=== PATIENT | female | born 1995 | race African-American/Black ===

== ENCOUNTER 2016-06-05 12:34 | Emergency (ER) | payer SELFPAY ==
[~2016-06-05] VITALS: Ht 154.9 cm; Wt 55.0 kg
[2016-06-05 12:36] VITALS: BP 126/84; PULSE 84; RESP 20; TEMP 98.5; O2SAT 100
--- NOTE | 2016-06-05 13:12 | PD ---
Physical Exam Time Seen by Provider: 13:11 Narrative 20 yo F with vaginal bleeding since January. Reports abd cramping. Denies fever, vomiting. VSS Seen in triage, awaiting bed placement. Data Data Last Documented VS Vital Signs Date Time Temp Pulse Resp B/P Pulse Ox O2 Delivery O2 Flow Rate FiO2 06/05/16 12:36 98.5 84 20 126/84 100 Room Air MDM Supervised Visit with SIM: No Scripts No Active Prescriptions or Reported Meds Jess Ahuja Jun 05, 2016 13:12
[2016-06-05] MEDS ORDERED: SODIUM CHLOR 0.9% 1000 ML INJ 1,000 ML IV ONE (13:46)
[2016-06-05] MEDS ORDERED: SODIUM CHLORIDE 0.9% FLUSH 10 ML FLUSH IVF PRN (14:00)
[2016-06-05 14:13] LABS: BLOOD, URINE MOD (NEG); COMMENT (UR) CULT NOT INDICATED; CULTURE IF INDICATED CULT NOT INDICATED; GLUCOSE,URINE NEG (NEG); KETONE, URINE NEG (NEG); MUCUS URINE FEW /lpf (OCC); NITRITE,URINE NEG (NEG); SQUAMOUS EPITHELIAL CELL URINE <1 /hpf (0-5); URINE COLOR YELLOW (YELLW/STRAW)
[2016-06-05 14:15] LABS: AUTOMATED NEUTROPHIL # 1.4 TH/MM3 (1.8-7.7); BASOPHIL % 0.6 % (0.0-2.0); EOSINOPHIL # 0.2 TH/MM3 (0-0.4); EOSINOPHIL % 4.4 % (0.0-4.0); HEMATOCRIT 41.1 % (35.0-46.0); LYMPH % 52.9 % (9.0-44.0); LYMPHOCYTE # 2.3 TH/MM3 (1.0-4.8); MEAN CELL VOLUME 91.3 FL (80.0-100.0); MEAN CORPUSCULAR HEMOGLOBIN 30.9 PG (27.0-34.0); MEAN CORPUSCULAR HGB CONC 33.9 % (32.0-36.0); MONO % 9.8 % (0.0-8.0); NEUT % 32.3 % (16.0-70.0); PLATELET COUNT 199 TH/MM3 (150-450); RED CELL DISTRIBUTION WIDTH 13.5 % (11.6-17.2); WHITE BLOOD COUNT 4.4 TH/MM3 (4.0-11.0)
[2016-06-05 14:19] LABS: HEMO FLAGS AUTO DIFF
[2016-06-05 14:36] LABS: ALT (GPT) 17 U/L (10-53); ANION GAP 7 MEQ/L (5-15); AST (GOT) 10 U/L (15-37); BLOOD UREA NITROGEN 9 MG/DL (7-18); CHLORIDE 109 MEQ/L (98-107); GLOMERULAR FILTRATION RATE 115 ML/MIN (>89); POTASSIUM 4.3 MEQ/L (3.5-5.1); SODIUM (NA) 139 MEQ/L (136-145)
[2016-06-05 14:39] LABS: ALKALINE PHOSPHATASE 46 U/L (45-117); TOTAL BILIRUBIN ADULT 0.5 MG/DL (0.2-1.0)
--- NOTE | 2016-06-05 14:46 | PD ---
HPI Chief Complaint: Customer Experience Leader Problem/Complaint Time Seen by Provider: 13:30 Travel History International Travel<30 days: No Contact w/Intl Traveler<30days: No Traveled to known affect area: No History of Present Illness HPI Patient is a 20-year-old female presenting to the emergency department for evaluation of continuous vaginal bleeding since January. She states she stopped Depo-Provera in December, in January she was started on oral contraceptive pills and since that time she said moderately heavy bleeding using 4-5 tampons and pads daily. Patient states that she went back to the health Department and they changed her pills to Ortho Tri-Cyclen however that has not alleviated the bleeding. She states that she feels depressed because of the bleeding at times feels weak. She has been taking [id number] iron supplements and probiotics. She also reports vaginal odor, she states that the health department and gave her metronidazole 3 weeks ago but the odor persists. Patient has been taking ibuprofen 800 mg due to the cramping. PFS Past Medical History Medical History: Denies Significant Hx Diminished Hearing: No Immunizations Current: Yes ?: Unknown : 3 Para: 3 Miscarriage: 2 : 1 Dilation and Curettage (D&C): Yes Past Surgical History Abdominal Surgery: Yes (POLYP REMOVAL WITH EGD) Social History Alcohol Use: Yes (occ) Tobacco Use: No Substance Use: Yes (marijuana) Allergies-Medications (Allergen,Severity, Reaction): Coded Allergies: No Known Allergies (Unverified , 06/05/16) Reported Meds & Prescriptions Reported Meds & Active Scripts Active No Active Prescriptions or Reported Medications Review of Systems Except as stated in HPI: all other systems reviewed are Neg Genitourinary: Positive: Discharge, Menorrhagia, Vaginal Bleeding Physical Exam Narrative GENERAL: Well-nourished, well-developed patient. SKIN: Focused skin assessment warm/dry. HEAD: Normocephalic. EYES: No scleral icterus. No injection or drainage. NECK: Supple, trachea midline. No JVD or lymphadenopathy. CARDIOVASCULAR: Regular rate and rhythm without murmurs, gallops, or rubs. RESPIRATORY: Breath sounds equal bilaterally. No accessory muscle use. GASTROINTESTINAL: Abdomen soft, non-tender, nondistended. MUSCULOSKELETAL: No cyanosis, or edema. BACK: Nontender without obvious deformity. No CVA tenderness. GENITOURINARY: No dysuria, no frequency, vaginal discharge. Moderate amount of blood in vaginal vault. Data Data Last Documented VS Vital Signs Date Time Temp Pulse Resp B/P Pulse Ox O2 Delivery O2 Flow Rate FiO2 06/05/16 12:36 98.5 84 20 126/84 100 Room Air Orders Complete Blood Count With Diff (06/05/16 13:46) Comprehensive Metabolic Panel (06/05/16 13:46) Gc And Chlamydia Pcr (06/05/16 13:46) Wet Prep Profile (06/05/16 13:46) Urinalysis - C+S If Indicated (06/05/16 13:46) Iv Access Insert/Monitor (06/05/16 13:46) Sodium Chloride 0.9% Flush (Ns Flush) (06/05/16 14:00) Sodium Chlor 0.9% 1000 Ml Inj (Ns 1000 M (06/05/16 13:46) Thyroid Stimulating Hormone (06/05/16 14:32) Labs Laboratory Tests Test 06/05/16 13:30 White Blood Count 4.4 TH/MM3 Red Blood Count 4.50 MIL/MM3 Hemoglobin 13.9 GM/DL Hematocrit 41.1 % Mean Corpuscular Volume 91.3 FL Mean Corpuscular Hemoglobin 30.9 PG Mean Corpuscular Hemoglobin 33.9 % Concent Red Cell Distribution Width 13.5 % Platelet Count 199 TH/MM3 Mean Platelet Volume 11.1 FL Neutrophils (%) (Auto) 32.3 % Lymphocytes (%) (Auto) 52.9 % Monocytes (%) (Auto) 9.8 % Eosinophils (%) (Auto) 4.4 % Basophils (%) (Auto) 0.6 % Neutrophils # (Auto) 1.4 TH/MM3 Lymphocytes # (Auto) 2.3 TH/MM3 Monocytes # (Auto) 0.4 TH/MM3 Eosinophils # (Auto) 0.2 TH/MM3 Basophils # (Auto) 0.0 TH/MM3 CBC Comment AUTO DIFF Differential Total Cells 100 Counted Neutrophils % (Manual) 24 % Band Neutrophils % 1 % Lymphocytes % 59 % Monocytes % 14 % Eosinophils % 1 % Basophils % 1 % Neutrophils # (Manual) 1.1 TH/MM3 Differential Comment FINAL DIFF MANUAL Platelet Estimate NORMAL Platelet Morphology Comment ENLARGED Red Cell Morphology Comment NORMAL Urine Color YELLOW Urine Turbidity CLEAR Urine pH 7.0 Urine Specific [place] 1.025 Urine Protein TRACE mg/dL Urine Glucose (UA) NEG mg/dL Urine Ketones NEG mg/dL Urine Occult Blood MOD Urine Nitrite NEG Urine Bilirubin NEG Urine Urobilinogen LESS THAN 2.0 MG/DL Urine Leukocyte Esterase NEG Urine RBC /hpf Urine WBC 2 /hpf Urine Squamous Epithelial <1 /hpf Cells Urine Mucus FEW /lpf Microscopic Urinalysis Comment CULT NOT INDICATED Sodium Level 139 MEQ/L Potassium Level 4.3 MEQ/L Chloride Level 109 MEQ/L Carbon Dioxide Level 23.0 MEQ/L Anion Gap 7 MEQ/L Blood Urea Nitrogen 9 MG/DL Creatinine 0.76 MG/DL Estimat Glomerular Filtration 115 ML/MIN Rate Random Glucose 80 MG/DL Calcium Level 8.6 MG/DL Total Bilirubin 0.5 MG/DL Aspartate Amino Transf 10 U/L (AST/SGOT) Alanine Aminotransferase 17 U/L (ALT/SGPT) Alkaline Phosphatase 46 U/L Total Protein 7.3 GM/DL Albumin 3.6 GM/DL Thyroid Stimulating Hormone 0.655 uIU/ML 3rd Gen [facility] Medical Decision Making Medical Screen Exam Complete: Yes Emergency Medical Condition: Yes Interpretation(s) Vital Signs Date Time Temp Pulse Resp B/P Pulse Ox O2 Delivery O2 Flow Rate FiO2 06/05/16 12:36 98.5 84 20 126/84 100 Room Air Differential Diagnosis Menorrhagia versus fibroids versus thyroid disorder versus coagulopathy versus other Narrative Course Patient is a 20-year-old female presenting to emergency evaluation of 2 months of menstrual bleeding. Patient's vital signs are stable, CBC is unremarkable, chemistries unremarkable, TSH is within normal limits. Urinalysis shows occult blood which would be consistent with patient's vaginal bleeding. Wet prep is negative area patient will be given Microgestin 1.07/22/30, dose will taper, patient was given written instructions. He is advised to follow-up with a jumbo operator. She is encouraged to return to emergency department for any new or worsening symptoms. Patient verbalized understanding of these instructions. Patient is stable for discharge. Diagnosis Primary Impression: Menorrhagia Qualified Code: N92.1 - Menorrhagia with irregular cycle Referrals: Maintenance Shop Welder 1 week Patient Instructions: General Instructions, Menorrhagia (ED) Med/Other Pt SpecificInfo: Prescription(s) given Scripts Norethindrone-Ethinyl Estradiol (Microgestin 1.07/22)1.5-30 Mg-Mcg Tab1 Tab PO DAILY #1 PACK Ref 0 Prov:Brisa Meneses 06/05/16 Norethindrone-Ethinyl Estradiol (Microgestin 1.5)1.5-30 Mg-Mcg Tab1 Tab PO DAILY #1 PACK Ref 0 1 TAB PO TID FOR 3 DAYS, THEN 1 TAB PO BID FOR 5 DAYS, THEN 1 TAB PO DAILY UNTIL PACK IS COMPLETED Prov:Brisa Meneses 06/05/16 Disposition: 01 DISCHARGE HOME Condition: Stable Brisa Meneses Jun 05, 2016 14:46
[2016-06-05 14:53] LABS: BANDS 1 % (0-6); BASOPHILS 1 % (0-2); EOSINOPHILS 1 % (0-4); NEUTROPHIL # MANUAL DIFF 1.1 TH/MM3 (1.8-7.7); POLYS (SEG NEUTROPHILS) 24 % (16-70); WBC DIFF SAMPLE 100
[2016-06-05 14:54] LABS: PLATELET ESTIMATE SMEAR NORMAL (NORMAL); PLATELET MORPHOLOGY ENLARGED (NORMAL); SCAN/DIFF FINAL DIFF MANUAL
--- NOTE | 2016-06-05 16:05 | PD ---
Data Data Last Documented VS Vital Signs Date Time Temp Pulse Resp B/P Pulse Ox O2 Delivery O2 Flow Rate FiO2 06/05/16 12:36 98.5 84 20 126/84 100 Room Air Orders Complete Blood Count With Diff (06/05/16 13:46) Comprehensive Metabolic Panel (06/05/16 13:46) Gc And Chlamydia Pcr (06/05/16 13:46) Wet Prep Profile (06/05/16 13:46) Urinalysis - C+S If Indicated (06/05/16 13:46) Iv Access Insert/Monitor (06/05/16 13:46) Sodium Chloride 0.9% Flush (Ns Flush) (06/05/16 14:00) Sodium Chlor 0.9% 1000 Ml Inj (Ns 1000 M (06/05/16 13:46) Thyroid Stimulating Hormone (06/05/16 14:32) Labs Laboratory Tests Test 06/05/16 13:30 White Blood Count 4.4 TH/MM3 Red Blood Count 4.50 MIL/MM3 Hemoglobin 13.9 GM/DL Hematocrit 41.1 % Mean Corpuscular Volume 91.3 FL Mean Corpuscular Hemoglobin 30.9 PG Mean Corpuscular Hemoglobin 33.9 % Concent Red Cell Distribution Width 13.5 % Platelet Count 199 TH/MM3 Mean Platelet Volume 11.1 FL Neutrophils (%) (Auto) 32.3 % Lymphocytes (%) (Auto) 52.9 % Monocytes (%) (Auto) 9.8 % Eosinophils (%) (Auto) 4.4 % Basophils (%) (Auto) 0.6 % Neutrophils # (Auto) 1.4 TH/MM3 Lymphocytes # (Auto) 2.3 TH/MM3 Monocytes # (Auto) 0.4 TH/MM3 Eosinophils # (Auto) 0.2 TH/MM3 Basophils # (Auto) 0.0 TH/MM3 CBC Comment AUTO DIFF Differential Total Cells 100 Counted Neutrophils % (Manual) 24 % Band Neutrophils % 1 % Lymphocytes % 59 % Monocytes % 14 % Eosinophils % 1 % Basophils % 1 % Neutrophils # (Manual) 1.1 TH/MM3 Differential Comment FINAL DIFF MANUAL Platelet Estimate NORMAL Platelet Morphology Comment ENLARGED Red Cell Morphology Comment NORMAL Urine Color YELLOW Urine Turbidity CLEAR Urine pH 7.0 Urine Specific [place] 1.025 Urine Protein TRACE mg/dL Urine Glucose (UA) NEG mg/dL Urine Ketones NEG mg/dL Urine Occult Blood MOD Urine Nitrite NEG Urine Bilirubin NEG Urine Urobilinogen LESS THAN 2.0 MG/DL Urine Leukocyte Esterase NEG Urine RBC /hpf Urine WBC 2 /hpf Urine Squamous Epithelial <1 /hpf Cells Urine Mucus FEW /lpf Microscopic Urinalysis Comment CULT NOT INDICATED Sodium Level 139 MEQ/L Potassium Level 4.3 MEQ/L Chloride Level 109 MEQ/L Carbon Dioxide Level 23.0 MEQ/L Anion Gap 7 MEQ/L Blood Urea Nitrogen 9 MG/DL Creatinine 0.76 MG/DL Estimat Glomerular Filtration 115 ML/MIN Rate Random Glucose 80 MG/DL Calcium Level 8.6 MG/DL Total Bilirubin 0.5 MG/DL Aspartate Amino Transf 10 U/L (AST/SGOT) Alanine Aminotransferase 17 U/L (ALT/SGPT) Alkaline Phosphatase 46 U/L Total Protein 7.3 GM/DL Albumin 3.6 GM/DL Thyroid Stimulating Hormone 0.655 uIU/ML 3rd Gen MDM Supervised Visit with SIM: Yes Narrative Course The history, exam, and medical decision-making in the associated mid-level provider note were completed with my assistance. I reviewed and agree with the findings presented. I attest that I had a [id number] encounter with the patient on the same day, and personally performed and documented my assessment and findings in the medical record. *My assessment and Findings: 20 year-old woman with dysmenorrhea and vaginal bleeding ongoing for several months. She recently stopped her Depo-Provera. She's been on several rounds of control pills which haven't really seemed to help. She started bleeding, 2-3 tampons a day. Started very frustrating to her. Labs look okay. Thyroid tests look okay. Recommend gynecology follow-up. Could consider OCP taper. Scripts No Active Prescriptions or Reported Meds John Martinez MD Jun 05, 2016 16:05
[2016-06-05] MEDS ORDERED: NORE-44 PO (16:09)
[2016-06-05 18:22] LABS: CHLAMYDIA PCR NOT DETECTED (NOT DETECT); NEISSERIA PCR NOT DETECTED (NOT DETECT)
== END 2016-06-05 16:31 | disposition home or self-care (01) ==
LOC: NEPD 12:34
DX: N92.1 Excessive and frequent menstruation with irregular cycle (principal); N94.6 Dysmenorrhea, unspecified
CPT/HCPCS: 80053; 81001; 84443; 85007; 85027; 87210; 87491; 87591; 96360; 96361; 99284; J7030

== ENCOUNTER 2016-06-09 14:26 | Emergency (ER) | payer SELFPAY ==
[~2016-06-09] VITALS: Ht 154.9 cm; Wt 55.5 kg
[~2016-06-09 14:26] MED LIST: NORE-44 PO
[2016-06-09 14:28] VITALS: BP 122/61; PULSE 100; RESP 24; O2SAT 100
[2016-06-09] MEDS ORDERED: IRON18TA2 PO (14:57)
[2016-06-09 15:01] VITALS: TEMP 99
[2016-06-09] MEDS ORDERED: SODIUM CHLOR 0.9% 1000 ML INJ 1,000 ML IV SCH (15:13)
[2016-06-09] MEDS ORDERED: KETOROLAC TROMETHAMINE 30 MG/ML (IVP) VIAL IVP ONE (15:15)
[2016-06-09] MEDS ORDERED: SODIUM CHLORIDE 0.9% FLUSH 10 ML FLUSH IV FLUSH PRN (15:15)
[2016-06-09] MEDS ORDERED: ONDANSETRON HCL 4 MG/2 ML VIAL IVP ONE (15:15)
--- NOTE | 2016-06-09 15:43 | PD ---
HPI Chief Complaint: Abdominal Pain Time Seen by Provider: 14:58 Travel History International Travel<30 days: No Contact w/Intl Traveler<30days: No Traveled to known affect area: No History of Present Illness HPI 20-year-old female here with complaint of abdominal pain, nausea vomiting diarrhea. Patient states that she woke up this morning with diffuse crampy abdominal discomfort and associated nausea vomiting diarrhea. 10 episodes of emesis today, 4 episodes of diarrhea. No hematemesis or hematochezia. Patient notes mild diffuse crampy abdominal discomfort. No fevers or chills. No urinary symptoms. She does not recall eating any new foods. PFSH Past Medical History Diminished Hearing: No Immunizations Current: Yes ?: Not LMP: irreg-just received bc on the from : 3 Para: 3 Miscarriage: 2 : 1 Dilation and Curettage (D&C): Yes Past Surgical History Abdominal Surgery: Yes (POLYP REMOVAL WITH EGD) Social History Alcohol Use: Yes (occ) Tobacco Use: No Substance Use: Yes (marijuana) Allergies-Medications (Allergen,Severity, Reaction): Coded Allergies: No Known Allergies (Unverified , 06/09/16) Reported Meds & Prescriptions Reported Meds & Active Scripts Active Microgestin 1.5/30 (Norethindrone-Ethinyl Estradiol) 1.5-30 Mg-Mcg Tab 1 Tab PO DAILY Microgestin 1.5/30 (Norethindrone-Ethinyl Estradiol) 1.5-30 Mg-Mcg Tab 1 Tab PO DAILY 1 TAB PO TID FOR 3 DAYS, THEN 1 TAB PO BID FOR 5 DAYS, THEN 1 TAB PO DAILY UNTIL PACK IS COMPLETED Reported Iron (Ferrous Fumarate) 18 Mg Tab Unknown Dose PO DAILY Review of Systems Except as stated in HPI: all other systems reviewed are Neg Physical Exam Narrative GENERAL: Well-appearing female in no acute distress SKIN: Focused skin assessment warm/dry. HEAD: Normocephalic. EYES: No scleral icterus. No injection or drainage. ENT: Mucous membranes pink and moist. NECK: Supple CARDIOVASCULAR: Regular rate and rhythm. No murmur appreciated. RESPIRATORY: No accessory muscle use. Clear to auscultation. Breath sounds equal bilaterally. GASTROINTESTINAL: Abdomen soft, non-tender, nondistended. MUSCULOSKELETAL: No obvious deformities. No edema. NEUROLOGICAL: Awake and alert. Motor grossly within normal limits. Normal speech. PSYCHIATRIC: Appropriate mood and affect; insight and judgment normal. Data Data Last Documented VS Vital Signs Date Time Temp Pulse Resp B/P Pulse Ox O2 Delivery O2 Flow Rate FiO2 06/09/16 15:01 99.0 06/09/16 14:28 100 24 122/61 100 Room Air Orders Complete Blood Count With Diff (06/09/16 15:13) Comprehensive Metabolic Panel (06/09/16 15:13) Lipase (06/09/16 15:13) Iv Access Insert/Monitor (06/09/16 15:13) Oximetry (06/09/16 15:13) Ondansetron Inj (Zofran Inj) (06/09/16 15:15) Sodium Chlor 0.9% 1000 Ml Inj (Ns 1000 M (06/09/16 15:13) Sodium Chloride 0.9% Flush (Ns Flush) (06/09/16 15:15) Ketorolac Inj (Toradol Inj) (06/09/16 15:15) Diphenhydramine Inj (Benadryl Inj) (06/09/16 16:00) Metoclopramide Inj (Reglan Inj) (06/09/16 16:00) Labs Laboratory Tests Test 06/09/16 15:35 White Blood Count 7.5 TH/MM3 Red Blood Count 4.74 MIL/MM3 Hemoglobin 14.5 GM/DL Hematocrit 42.4 % Mean Corpuscular Volume 89.6 FL Mean Corpuscular Hemoglobin 30.7 PG Mean Corpuscular Hemoglobin 34.3 % Concent Red Cell Distribution Width 13.4 % Platelet Count 220 TH/MM3 Mean Platelet Volume 10.5 FL Neutrophils (%) (Auto) 87.4 % Lymphocytes (%) (Auto) 10.0 % Monocytes (%) (Auto) 2.2 % Eosinophils (%) (Auto) 0.0 % Basophils (%) (Auto) 0.4 % Neutrophils # (Auto) 6.6 TH/MM3 Lymphocytes # (Auto) 0.8 TH/MM3 Monocytes # (Auto) 0.2 TH/MM3 Eosinophils # (Auto) 0.0 TH/MM3 Basophils # (Auto) 0.0 TH/MM3 CBC Comment DIFF FINAL Differential Comment Sodium Level 137 MEQ/L Potassium Level 3.5 MEQ/L Chloride Level 106 MEQ/L Carbon Dioxide Level 18.9 MEQ/L Anion Gap 12 MEQ/L Blood Urea Nitrogen 11 MG/DL Creatinine 1.17 MG/DL Estimat Glomerular Filtration 70 ML/MIN Rate Random Glucose 105 MG/DL Calcium Level 9.3 MG/DL Total Bilirubin 1.0 MG/DL Aspartate Amino Transf 15 U/L (AST/SGOT) Alanine Aminotransferase 20 U/L (ALT/SGPT) Alkaline Phosphatase 49 U/L Total Protein 8.3 GM/DL Albumin 4.1 GM/DL Lipase 108 U/L [facility] Medical Decision Making Medical Screen Exam Complete: Yes Emergency Medical Condition: Yes Medical Record Reviewed: Yes Differential Diagnosis 20-year-old female here with nausea vomiting diarrhea and diffuse crampy abdominal pain since eating this morning. Symptoms seem consistent with gastroenteritis or foodborne illness, differential includes dehydration, electrolyte abnormality, pancreatitis or hepatobiliary pathology. Narrative Course Patient placed on monitor, IV established and blood obtained. CBC, CMP, lipase obtained and unremarkable. Patient given Toradol, Zofran, 1 L normal saline bolus without improvement of her symptoms. Given Benadryl, Reglan, Zofran and able to tolerate oral challenge and will be discharged home. Diagnosis Primary Impression: Gastroenteritis Referrals: Primary Care Physician as needed Additional Instructions: Phenergan as needed for nausea, vomiting. Med/Other Pt SpecificInfo: Prescription(s) given Scripts Promethazine (Phenergan)50 Mg Tab50 Mg PO Q6H PRN (NAUSEA OR VOMITING) #21 TAB Ref 0 Prov:Jyotsna Chery MD 06/09/16 Disposition: 01 DISCHARGE HOME Condition: Stable Jyotsna Chery MD Jun 09, 2016 15:43
[2016-06-09 15:45] LABS: AUTOMATED NEUTROPHIL # 6.6 TH/MM3 (1.8-7.7); BASOPHIL % 0.4 % (0.0-2.0); HEMATOCRIT 42.4 % (35.0-46.0); LYMPHOCYTE # 0.8 TH/MM3 (1.0-4.8); MEAN CELL VOLUME 89.6 FL (80.0-100.0); MEAN CORPUSCULAR HEMOGLOBIN 30.7 PG (27.0-34.0); MEAN CORPUSCULAR HGB CONC 34.3 % (32.0-36.0); MONO % 2.2 % (0.0-8.0); NEUT % 87.4 % (16.0-70.0); PLATELET COUNT 220 TH/MM3 (150-450); RED BLOOD COUNT 4.74 MIL/MM3 (4.00-5.30); RED CELL DISTRIBUTION WIDTH 13.4 % (11.6-17.2); WHITE BLOOD COUNT 7.5 TH/MM3 (4.0-11.0)
[2016-06-09 15:46] LABS: HEMO FLAGS DIFF FINAL
[2016-06-09] MEDS ORDERED: METOCLOPRAMIDE HCL 10 MG/2 ML VIAL IVP ONE (16:00)
[2016-06-09] MEDS ORDERED: diphenhydrAMINE HCL 50 MG/ML VIAL IVP ONE (16:00)
[2016-06-09 16:01] LABS: ANION GAP 12 MEQ/L (5-15); AST (GOT) 15 U/L (15-37); BICARBONATE 18.9 MEQ/L (21.0-32.0); BLOOD UREA NITROGEN 11 MG/DL (7-18); CHLORIDE 106 MEQ/L (98-107); GLOMERULAR FILTRATION RATE 70 ML/MIN (>89); POTASSIUM 3.5 MEQ/L (3.5-5.1); SODIUM (NA) 137 MEQ/L (136-145)
[2016-06-09 16:04] LABS: ALKALINE PHOSPHATASE 49 U/L (45-117); ALT (GPT) 20 U/L (10-53)
[2016-06-09] MEDS ORDERED: PROM50TA PO (16:51)
[2016-06-09] MEDS ORDERED: ONDANSETRON HCL 4 MG/2 ML VIAL IV PUSH ONE (17:00)
[2016-06-09 17:26] VITALS: BP 118/71; PULSE 94; RESP 20
== END 2016-06-09 17:39 | disposition home or self-care (01) ==
LOC: NEPD 14:26
DX: K52.9 Noninfective gastroenteritis and colitis, unspecified (principal); R19.7 Diarrhea, unspecified; R11.2 Nausea with vomiting, unspecified
CPT/HCPCS: 80053; 83690; 85025; 96361; 96374; 96375; 96376; 99284; J1200; J1885; J2405; J2765; J7030

== ENCOUNTER 2016-06-12 00:10 | Emergency (ER) | payer SELFPAY ==
[~2016-06-12] VITALS: Ht 154.9 cm; Wt 58.0 kg
[~2016-06-12 00:10] MED LIST changes: +IRON18TA2 PO; +PROM50TA PO
[2016-06-12 00:20] VITALS: BP 137/82; PULSE 77; RESP 14; TEMP 98.4; O2SAT 100
[2016-06-12] MEDS ORDERED: PROM12.54 PO (00:27)
[2016-06-12] MEDS ORDERED: METO10TA PO (00:27)
[2016-06-12] MEDS ORDERED: SODIUM CHLOR 0.9% 1000 ML INJ 1,000 ML IV ONE (00:45)
[2016-06-12] MEDS ORDERED: METOCLOPRAMIDE HCL 10 MG/2 ML VIAL IV PUSH ONE (00:45)
[2016-06-12] MEDS ORDERED: diphenhydrAMINE HCL 50 MG/ML VIAL IV PUSH ONE (00:45)
[2016-06-12] MEDS ORDERED: PANTOPRAZOLE SODIUM 40 MG VIAL IV PUSH ONE (00:45)
[2016-06-12] MEDS ORDERED: ONDANSETRON HCL 4 MG/2 ML VIAL IV PUSH ONE (00:45)
--- NOTE | 2016-06-12 00:53 | PD ---
HPI Chief Complaint: GI Complaint Time Seen by Provider: 00:33 Travel History International Travel<30 days: No Contact w/Intl Traveler<30days: No Traveled to known affect area: No History of Present Illness HPI 20-year-old female complaining of persistent nausea vomiting and burning sensation substernally. Patient states that the symptoms started 4 days ago. Patient was seen in emergency room 3 days ago with diagnosis of gastroenteritis. Patient was given IV fluid Benadryl Reglan and Zofran. Patient was discharged home with prescription for Phenergan. Patient states that she had persistent nausea vomiting and was seen at [facility] yesterday. Patient states that blood tests were normal. Patient was discharged home with prescription for Reglan. Patient states that she had persistent nausea vomiting despite taking medication. Patient states that she had burning sensation started over the epigastric area with radiation to substernal area. Patient denies any fever chills. Patient denies any coughing congestion. Patient denies any dysuria or frequency. Patient denies any vaginal discharge or bleeding. PFSH Past Medical History Diminished Hearing: No Immunizations Current: Yes ?: Not LMP: 06/03/16 : 3 Para: 3 Miscarriage: 2 : 1 Dilation and Curettage (D&C): Yes Past Surgical History Abdominal Surgery: Yes (POLYP REMOVAL WITH EGD) Social History Alcohol Use: Yes (occ) Tobacco Use: No Substance Use: Yes (marijuana) Allergies-Medications (Allergen,Severity, Reaction): Coded Allergies: No Known Allergies (Unverified , 06/12/16) Reported Meds & Prescriptions Reported Meds & Active Scripts Active Protonix (Pantoprazole Sodium) 20 Mg Tab 20 Mg PO DAILY Phenergan (Promethazine HCl) 25 Mg Tab 25 Mg PO Q6H PRN Reglan (Metoclopramide HCl) 10 Mg Tab 10 Mg PO QID Phenergan (Promethazine HCl) 50 Mg Tab 50 Mg PO Q6H PRN Microgestin 1.5/30 (Norethindrone-Ethinyl Estradiol) 1.5-30 Mg-Mcg Tab 1 Tab PO DAILY 1 TAB PO TID FOR 3 DAYS, THEN 1 TAB PO BID FOR 5 DAYS, THEN 1 TAB PO DAILY UNTIL PACK IS COMPLETED Reported Promethazine (Promethazine HCl) 12.5 Mg Tab 50 Mg PO Q6HR PRN Metoclopramide (Metoclopramide HCl) 10 Mg Tab 10 Mg PO QID Iron (Ferrous Fumarate) 18 Mg Tab Unknown Dose PO DAILY Review of Systems General / Constitutional: No: Fever Eyes: No: Visual changes HENT: No: Headaches Cardiovascular: No: Chest Pain or Discomfort Respiratory: No: Shortness of Breath Gastrointestinal: Positive: Nausea, Vomiting, No: Abdominal Pain Genitourinary: No: Dysuria Musculoskeletal: No: Pain Skin: No Rash Neurologic: No: Weakness Psychiatric: No: Depression Endocrine: No: Polydipsia Hematologic/Lymphatic: No: Easy Bruising Physical Exam Narrative GENERAL: Well-nourished, well-developed patient. SKIN: Focused skin assessment warm/dry. HEAD: Normocephalic. EYES: No scleral icterus. No injection or drainage. NECK: Supple, trachea midline. No JVD or lymphadenopathy. CARDIOVASCULAR: Regular rate and rhythm without murmurs, gallops, or rubs. RESPIRATORY: Breath sounds equal bilaterally. No accessory muscle use. GASTROINTESTINAL: Abdomen soft, non-tender, nondistended. MUSCULOSKELETAL: No cyanosis, or edema. BACK: Nontender without obvious deformity. No CVA tenderness. Neurologic exam normal. Data Data Last Documented VS Vital Signs Date Time Temp Pulse Resp B/P Pulse Ox O2 Delivery O2 Flow Rate FiO2 06/12/16 00:55 100 Room Air 06/12/16 00:20 98.4 77 14 137/82 Orders Complete Blood Count With Diff (06/12/16 00:39) Comprehensive Metabolic Panel (06/12/16 00:39) Lipase (06/12/16 00:39) Urinalysis - C+S If Indicated (06/12/16 00:39) Abdomen, Flat & Upright (06/12/16 00:39) Iv Access Insert/Monitor (06/12/16 00:39) Ecg Monitoring (06/12/16 00:39) Oximetry (06/12/16 00:39) Ed Urine Pregnancytest Poc (06/12/16 00:39) Sodium Chlor 0.9% 1000 Ml Inj (Ns 1000 M (06/12/16 00:45) Ondansetron Inj (Zofran Inj) (06/12/16 00:45) Metoclopramide Inj (Reglan Inj) (06/12/16 00:45) Diphenhydramine Inj (Benadryl Inj) (06/12/16 00:45) Pantoprazole Inj (Protonix Inj) (06/12/16 00:45) Labs Laboratory Tests Test 06/12/16 06/12/16 00:52 00:58 White Blood Count 7.0 TH/MM3 Red Blood Count 4.42 MIL/MM3 Hemoglobin 13.3 GM/DL Hematocrit 40.0 % Mean Corpuscular Volume 90.5 FL Mean Corpuscular Hemoglobin 30.0 PG Mean Corpuscular Hemoglobin 33.1 % Concent Red Cell Distribution Width 13.5 % Platelet Count 167 TH/MM3 Mean Platelet Volume 11.2 FL Neutrophils (%) (Auto) 54.2 % Lymphocytes (%) (Auto) 33.1 % Monocytes (%) (Auto) 11.0 % Eosinophils (%) (Auto) 1.2 % Basophils (%) (Auto) 0.5 % Neutrophils # (Auto) 3.8 TH/MM3 Lymphocytes # (Auto) 2.3 TH/MM3 Monocytes # (Auto) 0.8 TH/MM3 Eosinophils # (Auto) 0.1 TH/MM3 Basophils # (Auto) 0.0 TH/MM3 CBC Comment AUTO DIFF Sodium Level 136 MEQ/L Potassium Level 3.3 MEQ/L Chloride Level 104 MEQ/L Carbon Dioxide Level 23.1 MEQ/L Anion Gap 9 MEQ/L Blood Urea Nitrogen 5 MG/DL Creatinine 0.85 MG/DL Estimat Glomerular Filtration 101 ML/MIN Rate Random Glucose 88 MG/DL Calcium Level 8.4 MG/DL Total Bilirubin 1.2 MG/DL Aspartate Amino Transf 16 U/L (AST/SGOT) Alanine Aminotransferase 16 U/L (ALT/SGPT) Alkaline Phosphatase 41 U/L Total Protein 6.9 GM/DL Albumin 3.6 GM/DL Lipase 155 U/L Urine Color YELLOW Urine Turbidity CLEAR Urine pH 7.0 Urine Specific [place] 1.011 Urine Protein NEG mg/dL Urine Glucose (UA) NEG mg/dL Urine Ketones 80 mg/dL Urine Occult Blood SMALL Urine Nitrite NEG Urine Bilirubin NEG Urine Urobilinogen LESS THAN 2.0 MG/DL Urine Leukocyte Esterase NEG Urine RBC 1 /hpf Urine WBC 2 /hpf Urine Squamous Epithelial <1 /hpf Cells Urine Mucus FEW /lpf Microscopic Urinalysis Comment CULT NOT INDICATED MDM Medical Decision Making Medical Screen Exam Complete: Yes Emergency Medical Condition: Yes Interpretation(s) Last Impressions Abdomen X-Ray 06/12/16 0039 Signed Impressions: Service Date/Time: May 00:41 - CONCLUSION: Normal examination. John Andrew MD 1:45 AM. CBC within normal limit. Potassium 3.3. CMP otherwise within normal limit. UA is negative. Urine test negative. Differential Diagnosis Differential diagnosis including gastroenteritis, gastritis, PUD, pancreatitis, cholecystitis, colitis, UTI, pyelonephritis. Narrative Course 20-year-old female with persistent nausea vomiting. Patient was seen in the emergency room 3 days ago and then yesterday. Patient was put on Phenergan and then Reglan without relief of nausea vomiting. Normal saline solution 1 L IV bolus. Zofran 4 mg IV. Reglan 10 mg IV. Benadryl 25 mg IV. Protonix 40 mg IV. Diagnosis Primary Impression: Gastroenteritis Additional Impression: Hypokalemia Patient Instructions: General Instructions Additional Instructions: Take medication as needed. Follow-up with personal physician and GI specialist. Return if persistent problem or worse. Med/Other Pt SpecificInfo: Prescription(s) given Scripts Potassium Chloride ER 10 Meq Tab10 Meq PO BID #10 TAB Ref 0 Prov:Myles Luna MD 06/12/16 Pantoprazole (Protonix)20 Mg Tab20 Mg PO DAILY #30 TAB Prov:Myles Luna MD 06/12/16 Promethazine (Phenergan)25 Mg Tab25 Mg PO Q6H PRN (Nausea/Vomiting) #20 TAB Ref 0 Prov:Myles Luna MD 06/12/16 Metoclopramide (Reglan)10 Mg Tab10 Mg PO QID #20 TAB Ref 0 Prov:Myles Luna MD 06/12/16 Disposition: 01 DISCHARGE HOME Condition: Stable Myles Luna MD Jun 12, 2016 00:53
[2016-06-12 00:55] VITALS: O2SAT 100
[2016-06-12 01:12] LABS: BLOOD, URINE SMALL (NEG); COMMENT (UR) CULT NOT INDICATED; GLUCOSE,URINE NEG (NEG); KETONE, URINE 80 mg/dL (NEG); MUCUS URINE FEW /lpf (OCC); NITRITE,URINE NEG (NEG); SQUAMOUS EPITHELIAL CELL URINE <1 /hpf (0-5); URINE COLOR YELLOW (YELLW/STRAW)
[2016-06-12 01:13] LABS: CULTURE IF INDICATED CULT NOT INDICATED
--- NOTE | 2016-06-12 01:13 | RADRPT ---
EXAM DATE/TIME: 06/12/2016 00:41 [facility] COMPARISON: ABDOMEN FLAT & UPRIGHT, July 22, 2015, 14:01. INDICATIONS : Nausea and vomiting for four days. MEDICAL HISTORY : None. SURGICAL HISTORY : None. ENCOUNTER: Initial ACUITY: 4 - 6 days PAIN SCORE: 3/10 LOCATION: Bilateral Abdomen FINDINGS: Supine and upright views of the abdomen were performed. The abdominal bowel gas pattern is normal. No air fluid levels are seen. No abnormal masses, calcifications, or organomegaly is seen. The visu alized lower lungs are clear. No evidence of free intraperitoneal gas. The osseous structures are u nremarkable. CONCLUSION: Normal examination. John Andrew MD on June 12, 2016 at 1:11 Board Certified Radiologist. This report was verified electronically.
[2016-06-12 01:18] LABS: AUTOMATED NEUTROPHIL # 3.8 TH/MM3 (1.8-7.7); BASOPHIL % 0.5 % (0.0-2.0); EOSINOPHIL # 0.1 TH/MM3 (0-0.4); EOSINOPHIL % 1.2 % (0.0-4.0); LYMPH % 33.1 % (9.0-44.0); LYMPHOCYTE # 2.3 TH/MM3 (1.0-4.8); MEAN CELL VOLUME 90.5 FL (80.0-100.0); MEAN CORPUSCULAR HGB CONC 33.1 % (32.0-36.0); NEUT % 54.2 % (16.0-70.0); PLATELET COUNT 167 TH/MM3 (150-450); RED BLOOD COUNT 4.42 MIL/MM3 (4.00-5.30); RED CELL DISTRIBUTION WIDTH 13.5 % (11.6-17.2)
[2016-06-12 01:20] LABS: HEMO FLAGS AUTO DIFF
[2016-06-12 01:27] LABS: ALKALINE PHOSPHATASE 41 U/L (45-117); ALT (GPT) 16 U/L (10-53); ANION GAP 9 MEQ/L (5-15); AST (GOT) 16 U/L (15-37); BICARBONATE 23.1 MEQ/L (21.0-32.0); BLOOD UREA NITROGEN 5 MG/DL (7-18); CHLORIDE 104 MEQ/L (98-107); GLOMERULAR FILTRATION RATE 101 ML/MIN (>89); POTASSIUM 3.3 MEQ/L (3.5-5.1); SODIUM (NA) 136 MEQ/L (136-145); TOTAL BILIRUBIN ADULT 1.2 MG/DL (0.2-1.0)
[2016-06-12] MEDS ORDERED: REGL10TA5 PO (01:49)
[2016-06-12] MEDS ORDERED: PROM25TA5 PO (01:49)
[2016-06-12] MEDS ORDERED: PANT20 PO (01:50)
[2016-06-12 02:17] LABS: SCAN/DIFF AUTO DIFF CONFIRMED
[2016-06-12] MEDS ORDERED: POTA10TA2 PO (02:28)
[2016-06-12 02:32] LABS: PLATELET ESTIMATE SMEAR LOW (NORMAL); PLATELET MORPHOLOGY NORMAL (NORMAL)
== END 2016-06-12 02:38 | disposition home or self-care (01) ==
LOC: NEPE 00:10
DX: K52.9 Noninfective gastroenteritis and colitis, unspecified (principal); R10.13 Epigastric pain; E87.6 Hypokalemia; F12.90 Cannabis use, unspecified, uncomplicated
CPT/HCPCS: 74020; 80053; 81001; 83690; 84703; 85025; 96361; 96374; 96375; 99283; C9113; J1200; J2405; J2765; J7030

== ENCOUNTER 2016-09-29 18:02 | Emergency (ER) | payer OTHER ==
[~2016-09-29] VITALS: Ht 154.9 cm; Wt 54.0 kg
[~2016-09-29 18:02] MED LIST changes: +METO10TA PO; +PANT20 PO; +POTA10TA2 PO; +PROM12.54 PO; +PROM25TA5 PO; +REGL10TA5 PO
[2016-09-29 18:05] VITALS: BP 128/69; PULSE 106; RESP 22; TEMP 98.9; O2SAT 100
--- NOTE | 2016-09-29 18:36 | PD ---
Physical Exam Date Seen by Provider: Sep 29, 2016 Time Seen by Provider: 18:31 Narrative 21 y/o female with lower abdominal pain. Patient is 11 weeks with confirmed no Heart beat in the fetus. Was referred for D and C to be done by today. Called multiple NUTRITION COORDINATOR's in the area and got no response. Here for NUTRITION COORDINATOR treatment. No other Medical Complaints. L and D called. Patient is to go through ED. Vital signs reviewed. Patient stable. Awaiting Bed placement. Data Data Last Documented VS Vital Signs Date Time Temp Pulse Resp B/P Pulse Ox O2 Delivery O2 Flow Rate FiO2 09/29/16 18:05 98.9 106 22 128/69 100 MDM Medical Record Reviewed: Yes Supervised Visit with SIM: Yes Condition: Stable Julio Cesar Weinberg Sep 29, 2016 18:36
[2016-09-29] MEDS ORDERED: ONDANSETRON HCL 4 MG/2 ML VIAL IM ONE (21:30)
[2016-09-29] MEDS ORDERED: SODIUM CHLORIDE 0.9% FLUSH 10 ML FLUSH IVF PRN (21:30)
--- NOTE | 2016-09-29 21:33 | PD ---
HPI Chief Complaint: Related Problem Time Seen by Provider: 21:28 Travel History International Travel<30 days: No Contact w/Intl Traveler<30days: No Traveled to known affect area: No History of Present Illness HPI Patient comes emergency Department requesting possible D&C to be performed. Patient states that she was told 2 weeks ago that likely having demise. Patient had a repeat ultrasound performed on September 19 she has a copy of that shows findings most consistent with intrauterine demise. No heart tones with a crown-rump length 2.3 cm. Patient states she was instructed to follow-up with OB to have a D&C performed today. Patient states she contacted multiple OBs was not able find one to get in with today. Patient came to the emergency department for further treatment and evaluation and she was told by different ER that the OBs that take her insurance are digital content specialist here. Patient reports lower abdominal pain and describes cramping like in nature that radiates to her low back. Denies any known fevers. Denies any vaginal discharge. Denies any chest pain, shortness of breath, or loss change in bowel or bladder. Patient has been taking Tylenol for symptomatic relief. Denies anything making it worse. PFSH Past Medical History Medical History: Denies Significant Hx Diminished Hearing: No Immunizations Current: Yes Tetanus Vaccination: Unknown Influenza Vaccination: No ?: LMP: 07/12/2016 : 1 Para: 0 Miscarriage: 2 : 1 Dilation and Curettage (D&C): Yes Past Surgical History Surgical History: No Previous Surgery Abdominal Surgery: Yes (POLYP REMOVAL WITH EGD) Social History Alcohol Use: No Tobacco Use: No Substance Use: No Allergies-Medications (Allergen,Severity, Reaction): Coded Allergies: No Known Allergies (Unverified , 09/30/16) Reported Meds & Prescriptions Reported Meds & Active Scripts Active Lortab (Hydrocodone-Acetaminophen) 5-325 Mg Tab 1 Tab PO Q6H PRN Review of Systems Except as stated in HPI: all other systems reviewed are Neg Physical Exam Narrative GENERAL: Well-developed, well nourished, in no acute distress, and non-ill appearing. SKIN: Focused skin assessment warm and dry. HEAD: Atraumatic. Normocephalic. EYES: Pupils equal and round. EOMI. No scleral icterus. No injection or drainage. ENT: No nasal bleeding or discharge. Mucous membranes pink and moist. NECK: Trachea midline. Supple. No nuclear rigidity. CARDIOVASCULAR: Regular rate and rhythm. No murmur appreciated. RESPIRATORY: No accessory muscle use. No respiratory distress. Clear to auscultation. Breath sounds equal bilaterally. GASTROINTESTINAL: Abdomen soft, nondistended, and no guarding. Hepatic and splenic margins not palpable. Normal bowel sounds 4. No pulsatile mass. Patient reports tenderness throughout lower abdomen. Cervical os is closed on bimanual exam with no cervical motion tenderness noted. Exam was performed presents field staff Letitia at all times. MUSCULOSKELETAL: No obvious deformities. No clubbing. No cyanosis. No edema. Full range of motion. NEUROLOGICAL: Awake and alert. No obvious cranial nerve deficits. Motor grossly within normal limits. Normal speech. PSYCHIATRIC: Appropriate mood and affect; insight and judgment normal. Data Data Last Documented VS Vital Signs Date Time Temp Pulse Resp B/P Pulse Ox O2 Delivery O2 Flow Rate FiO2 09/29/16 23:20 89 16 106/51 100 09/29/16 18:05 98.9 Orders Beta Hcg (Quant/Titer) (09/29/16 21:21) Complete Blood Count With Diff (09/29/16 21:21) Comprehensive Metabolic Panel (09/29/16 21:21) Urinalysis - C+S If Indicated (09/29/16 21:21) Iv Access Insert/Monitor (09/29/16 21:21) Ecg Monitoring (09/29/16 21:21) Sodium Chloride 0.9% Flush (Ns Flush) (09/29/16 21:30) Ondansetron Inj (Zofran Inj) (09/29/16 21:30) Ed Urine Pregnancytest Poc (09/29/16 21:21) Ondansetron Inj (Zofran Inj) (09/29/16 21:45) Us Pelvis (Ques Pr/Ect)W Trans (09/29/16 ) Acetamin-Hydrocod 325-5 Mg (Mccaskill 5-325 (09/29/16 23:15) Labs Laboratory Tests Test 09/29/16 09/29/16 21:20 22:27 White Blood Count 6.4 TH/MM3 Red Blood Count 4.38 MIL/MM3 Hemoglobin 13.3 GM/DL Hematocrit 40.6 % Mean Corpuscular Volume 92.8 FL Mean Corpuscular Hemoglobin 30.4 PG Mean Corpuscular Hemoglobin 32.8 % Concent Red Cell Distribution Width 14.1 % Platelet Count 277 TH/MM3 Mean Platelet Volume 9.4 FL Neutrophils (%) (Auto) 44.3 % Lymphocytes (%) (Auto) 41.4 % Monocytes (%) (Auto) 8.7 % Eosinophils (%) (Auto) 4.8 % Basophils (%) (Auto) 0.8 % Neutrophils # (Auto) 2.9 TH/MM3 Lymphocytes # (Auto) 2.7 TH/MM3 Monocytes # (Auto) 0.6 TH/MM3 Eosinophils # (Auto) 0.3 TH/MM3 Basophils # (Auto) 0.0 TH/MM3 CBC Comment DIFF FINAL Differential Comment Sodium Level 137 MEQ/L Potassium Level 3.9 MEQ/L Chloride Level 105 MEQ/L Carbon Dioxide Level 24.5 MEQ/L Anion Gap 8 MEQ/L Blood Urea Nitrogen 8 MG/DL Creatinine 0.62 MG/DL Estimat Glomerular Filtration 144 ML/MIN Rate Random Glucose 85 MG/DL Calcium Level 8.7 MG/DL Total Bilirubin 0.3 MG/DL Aspartate Amino Transf 13 U/L (AST/SGOT) Alanine Aminotransferase 16 U/L (ALT/SGPT) Alkaline Phosphatase 49 U/L Total Protein 7.4 GM/DL Albumin 3.6 GM/DL Human Chorionic Gonadotropin, 5924 MIU/ML Quant Urine Color YELLOW Urine Turbidity CLEAR Urine pH 6.0 Urine Specific Porter 1.036 Urine Protein TRACE mg/dL Urine Glucose (UA) NEG mg/dL Urine Ketones NEG mg/dL Urine Occult Blood NEG Urine Nitrite NEG Urine Bilirubin NEG Urine Urobilinogen LESS THAN 2.0 MG/DL Urine Leukocyte Esterase NEG Urine RBC LESS THAN 1 /hpf Urine WBC 1 /hpf Urine Squamous Epithelial 1 /hpf Cells Urine Mucus FEW /lpf Microscopic Urinalysis Comment CULT NOT INDICATED MDM Medical Decision Making Medical Screen Exam Complete: Yes Emergency Medical Condition: Yes Medical Record Reviewed: Yes Interpretation(s) Ultrasound read by the radiologist shows: Sonographic findings are characteristic of a in utero with no heart rate identified. Also probable subchorionic hemorrhage and questionable 5 cm hemorrhage versus fibroid within the uterus. Differential Diagnosis Incomplete , threatened miscarriage, inevitable , UTI, sepsis, other Narrative Course Patient medical record reviewed found she is A+ blood type. There is no evidence to suggest ectopic , nor cervicitis, PID or torsion at this time. There was no evidence to support colitis, diverticulitis, obstruction, abdominal or femoral herniation, volvulus, early appendicitis, or hernial incarceration or strangulation at this time. Patient is stable and no clinical evidence of anemia. There is no RH incompatibility. Possibility of a inevitable was discussed with the patient. The patient was instructed to follow up with OB within tomorrow and was given contact information. She was given warnings to return if bleeding worsened, passed tissue, felt faint or passed out, fever, worsening pain, inability to tolerate fluids, or as needed. The patient agreed with plan. Patient in no obvious distress upon re-evaluation. All pertinent laboratory/ Radiology result(s) discussed with patient. Discussed patient with Dr. Mccoy prior to discharge, who is in agreement with plan of care and disposition. Patient was asked if they wanted to speak to my attending, which the patient did not wish to do at this time. Any questions/concerns in reference to patient diagnosis/condition discussed and clarified prior to patient's discharge. Reinforced sheer importance of close follow up with [facility]. Instructed patient to return to ED immediately, if symptoms return/ worsen. Pt showed understanding of above instructions. Further instructions and recommendations were detailed in discharge paperwork. Pt ambulated without difficulty out of ED at discharge. Physician Communication Physician Communication [phone] Lujan OB on-call, who recommends having the patient follow-up at [facility] for outpatient D&C. Diagnosis Primary Impression: Inevitable Referrals: [facility] 1 day Patient Instructions: General Instructions, Miscarriage (ED) Departure Forms: Work Release Enter return to work date: Oct 01, 2016 Additional Instructions: Follow-up with [facility] tomorrow, be certain to bring photo ID for outpatient D&C and further evaluation for incidental findings noted on ultrasound today of subchorionic hemorrhage versus fibroid. Take all medication as prescribed. Return to the emergency department immediately if symptoms get worse, develop fevers, worsening pain, unable tolerate fluids, or for other emergent concerns. Med/Other Pt SpecificInfo: Prescription(s) given Scripts Hydrocodone-Acetaminophen (Lortab)5-325 Mg Tab1 Tab PO Q6H PRN (PAIN) #12 TAB Ref 0 Prov:Lakisha Mccoy MD 09/29/16 Disposition: 01 DISCHARGE HOME Condition: Stable Sukumar James Sep 29, 2016 21:33
[2016-09-29] MEDS ORDERED: ONDANSETRON HCL 4 MG/2 ML VIAL IV PUSH ONE (21:45)
[2016-09-29 22:00] LABS: AUTOMATED NEUTROPHIL # 2.9 TH/MM3 (1.8-7.7); BASOPHIL % 0.8 % (0.0-2.0); EOSINOPHIL # 0.3 TH/MM3 (0-0.4); EOSINOPHIL % 4.8 % (0.0-4.0); HEMATOCRIT 40.6 % (35.0-46.0); HEMO FLAGS DIFF FINAL; LYMPH % 41.4 % (9.0-44.0); LYMPHOCYTE # 2.7 TH/MM3 (1.0-4.8); MEAN CELL VOLUME 92.8 FL (80.0-100.0); MEAN CORPUSCULAR HEMOGLOBIN 30.4 PG (27.0-34.0); MEAN CORPUSCULAR HGB CONC 32.8 % (32.0-36.0); MONO % 8.7 % (0.0-8.0); NEUT % 44.3 % (16.0-70.0); PLATELET COUNT 277 TH/MM3 (150-450); RED BLOOD COUNT 4.38 MIL/MM3 (4.00-5.30); RED CELL DISTRIBUTION WIDTH 14.1 % (11.6-17.2); WHITE BLOOD COUNT 6.4 TH/MM3 (4.0-11.0)
[2016-09-29 22:22] LABS: ANION GAP 8 MEQ/L (5-15); AST (GOT) 13 U/L (15-37); BICARBONATE 24.5 MEQ/L (21.0-32.0); BLOOD UREA NITROGEN 8 MG/DL (7-18); CHLORIDE 105 MEQ/L (98-107); GLOMERULAR FILTRATION RATE 144 ML/MIN (>89); POTASSIUM 3.9 MEQ/L (3.5-5.1); SODIUM (NA) 137 MEQ/L (136-145)
[2016-09-29 22:23] LABS: ALT (GPT) 16 U/L (10-53)
[2016-09-29 22:40] LABS: ALKALINE PHOSPHATASE 49 U/L (45-117); BETA HCG QUANT 5924 MIU/ML (0-5); TOTAL BILIRUBIN ADULT 0.3 MG/DL (0.2-1.0)
--- NOTE | 2016-09-29 22:52 | RADRPT ---
EXAM DATE/TIME: 09/29/2016 21:52 [place] COMPARISON: No previous studies available for comparison. INDICATIONS : Pelvic pain. LAB(S): Beta-hC MEDICAL HISTORY : . . SURGICAL HISTORY : EGD with polyp removal. Dilation and curettage. ENCOUNTER: Initial ACUITY: 2 days PAIN SCORE: 7/10 LOCATION: Bilateral pelvis MEASUREMENTS: UTERUS: 9.8 x 7.0 x 6.0 cm ENDOMETRIAL STRIPE: 10 mm RIGHT OVARY: 4.4 x 3.2 x 1.3 cm LEFT OVARY: 3.5 x 2.4 x 1.4 cm FREE FLUID: No CROWN RUMP LENGTH: 2.2 cm = 8 WKS 6 DAYS FHR: Not visualized. BPM FINDINGS: Gestational sac measurements are characteristic of a 9 week 4 day gestation with a discordant 8 week 6 day gestation measurement by crown-rump length. No heart rate identified. Yolk sac present. N o free fluid. The uterus is retroflexed and appears to have subchorionic hemorrhage. There is questionable addition al fibroid present versus hemorrhage measuring up to about 5 cm in diameter. CONCLUSION: 1. Sonographic findings are characteristic of a in utero with no heart rate identif ied. Also probable subchorionic hemorrhage and questionable 5 cm hemorrhage versus fibroid within the uterus. Zackery Freeman MD on September 29, 2016 at 22:45 Board Certified Radiologist. This report was verified electronically.
[2016-09-29] MEDS ORDERED: HYDR-3533 PO (23:05)
[2016-09-29 23:06] LABS: BLOOD, URINE NEG (NEG); COMMENT (UR) CULT NOT INDICATED; CULTURE IF INDICATED CULT NOT INDICATED; GLUCOSE,URINE NEG (NEG); KETONE, URINE NEG (NEG); MUCUS URINE FEW /lpf (OCC); NITRITE,URINE NEG (NEG); SQUAMOUS EPITHELIAL CELL URINE 1 /hpf (0-5); URINE COLOR YELLOW (YELLW/STRAW)
[2016-09-29] MEDS ORDERED: ACETAMINOPHEN/HYDROcodone 325 MG/5 MG TAB PO ONE (23:15)
[2016-09-29 23:20] VITALS: BP 106/51
== END 2016-09-29 23:40 | disposition home or self-care (01) ==
LOC: NEPE 18:02
DX: O26.91 Pregnancy related conditions, unspecified, first trimester (principal); R10.30 Lower abdominal pain, unspecified; Z3A.11 11 weeks gestation of pregnancy
CPT/HCPCS: 76700; 76817; 80053; 81001; 84702; 84703; 85025; 99284

== ENCOUNTER 2016-09-30 10:31 | Emergency (ER) | payer OTHER ==
[~2016-09-30] VITALS: Ht 154.9 cm; Wt 53.0 kg
[~2016-09-30 10:31] MED LIST changes: +HYDR-3533 PO; -IRON18TA2 PO; -METO10TA PO; -NORE-44 PO; -PANT20 PO; -POTA10TA2 PO; -PROM12.54 PO; -PROM25TA5 PO; -PROM50TA PO; -REGL10TA5 PO
[2016-09-30 10:43] VITALS: BP 125/68; PULSE 90; RESP 14; TEMP 98.1; O2SAT 100
--- NOTE | 2016-09-30 11:46 | PD ---
HPI Chief Complaint: Related Problem Time Seen by Provider: 11:12 Travel History International Travel<30 days: No Contact w/Intl Traveler<30days: No Traveled to known affect area: No History of Present Illness HPI Patient is a 21-year-old female who is [id number] who returns to the emergency room for a D&C. Patient reports that she is 11 weeks , reports that 2 weeks ago, she was told that she was having demise and that she would eventually miscarry. Patient reports that she has not passed any products of conception and has increased lower abdominal cramping for the past 2 weeks. Patient reports that she has been to [facility] as well as [facility] multiple times, reports that she was sent to the [facility] for a D& C as they do not perform D&C's there. Patient denies any vaginal discharge, reports increased lower abdominal cramping. Patient requesting a D&C at this time. PFSH Past Medical History Medical History: Denies Significant Hx Diminished Hearing: No Immunizations Current: Yes ?: : 1 Para: 0 Miscarriage: 2 : 1 Dilation and Curettage (D&C): Yes Past Surgical History Abdominal Surgery: Yes (POLYP REMOVAL WITH EGD) Social History Alcohol Use: No Tobacco Use: No Substance Use: No Allergies-Medications (Allergen,Severity, Reaction): Coded Allergies: No Known Allergies (Unverified , 09/30/16) Reported Meds & Prescriptions Reported Meds & Active Scripts Active Lortab (Hydrocodone-Acetaminophen) 5-325 Mg Tab 1 Tab PO Q6H PRN Review of Systems General / Constitutional: No: Fever Eyes: No: Visual changes HENT: No: Headaches Cardiovascular: No: Chest Pain or Discomfort Respiratory: No: Shortness of Breath Gastrointestinal: Positive: Abdominal Pain Genitourinary: Positive: Other ("spotting"), No: Dysuria, Vaginal Bleeding Musculoskeletal: No: Pain Skin: No Rash Neurologic: No: Weakness Psychiatric: No: Depression Endocrine: No: Polydipsia Hematologic/Lymphatic: No: Easy Bruising Physical Exam Narrative GENERAL: NAD,Nontoxic SKIN: Focused skin assessment warm/dry. HEAD: Atraumatic. Normocephalic. EYES: Pupils equal and round. No scleral icterus. No injection or drainage. ENT: No nasal bleeding or discharge. Mucous membranes pink and moist. NECK: Trachea midline. No JVD. CARDIOVASCULAR: Regular rate and rhythm. No murmur appreciated. RESPIRATORY: No accessory muscle use. Clear to auscultation. Breath sounds equal bilaterally. GASTROINTESTINAL: Abdomen soft, non-tender, nondistended. Hepatic and splenic margins not palpable. MUSCULOSKELETAL: No obvious deformities. No clubbing. No cyanosis. No edema. NEUROLOGICAL: Awake and alert. No obvious cranial nerve deficits. Motor grossly within normal limits. Normal speech. PSYCHIATRIC: Appropriate mood and affect; insight and judgment normal. Data Data Last Documented VS Vital Signs Date Time Temp Pulse Resp B/P Pulse Ox O2 Delivery O2 Flow Rate FiO2 09/30/16 10:43 98.1 90 14 125/68 100 [facility] Medical Decision Making Medical Screen Exam Complete: Yes Emergency Medical Condition: Yes Interpretation(s) Vital Signs Date Time Temp Pulse Resp B/P Pulse Ox O2 Delivery O2 Flow Rate FiO2 09/30/16 10:43 98.1 90 14 125/68 100 Differential Diagnosis Differential includes demise Narrative Course 21-year-old female who returns to emergency room for possible D&C. Patient is 11 weeks , reports that she had field demise at 9 weeks. Patient was seen yesterday in the emergency room as well and had a full work up and [facility]. She returns to the ER from the clinic as they do not perform D&C's Patient reports vaginal spotting as well as lower abdominal cramping. I did review lab work from yesterday including pelvic ultrasound. HCG quant [id number] , ultrasound shows that there is characteristics of in utero with no heart rate with gestational sac measuring 9 weeks and 4 days, without discoordinate 8 week, 6 day gestation measurement by crown-rump length. No heart rate identified. I discussed case with Dr. Ramirez - ob/hospitalist, patient does not suffer any emergent condition at this time, there is no need for emergent D&C if vitals are stable. If patient requires D&C, will need to call editorial manager oracle ascp consultant I did talk to Dr. Lora who is on-call and is aware of patient. Reports the patient was seen at [facility] [address] times [address] Scott offered her outpatient follow up in the office twice which she has not gone for her appointment. Discussed with me that since patient is stable, she can follow up with Dr. Scott in the office for a scheduled D&C Call made to Dr. Scott - he refuses to speak to me as he does not have privileges here. He has refused to see this patient in the office. Reports that she was reportedly told to go to [facility] for D&C and she has been noncompliant. He did tell my staff that patient is at [facility] and she is now our responsibility. Ultimately, case reviewed with registered nurse hh case manager, patient has an appointment for D&C with Dr. Lora on Thursday at 2pm in her office. manager creative made this appointment for her and did give her the follow up information. Patient understands importance of outpatient follow up. Diagnosis Primary Impression: Inevitable Additional Impression: demise due to miscarriage Referrals: Justyna Lora MD Patient Instructions: General Instructions Additional Instructions: Please follow up with Dr. Lora on at 2PM as scheduled Disposition: 01 DISCHARGE HOME Condition: Stable Emily Amezquita DO Sep 30, 2016 11:46
== END 2016-09-30 15:39 | disposition home or self-care (01) ==
LOC: NEPD 10:31
DX: O03.9 Complete or unspecified spontaneous abortion without complication (principal)
CPT/HCPCS: 99281